=== PATIENT | female | born 1960 | race Caucasian/White ===

== ENCOUNTER → 2020-08-30 | Outpatient (CLI) | payer OTHER ==
--- NOTE | 2020-08-31 09:14 | RAD ---
EXAM: XR EXAM OF ANKLE_LEFT 2V, XR BILATERAL HIP (WITH OR WITHOUT PELVIS) LEFT 2 VIEWS 08/30/2020 11:0 9 AM CLINICAL INDICATION: Left hip and left ankle COMPARISON: None TECHNIQUE: 2 views of the left ankle. 2 views of the left hip. FINDINGS: Left ankle: No acute fracture. Alignment is normal. Ankle mortise is symmetric and talar dome is inta ct. Plantar calcaneal enthesophyte. There is mild circumferential soft tissue swelling. Left hip: No acute fracture. Alignment is normal. Joint spaces are maintained. Pubic symphysis, sacro iliac joints and lower lumbar spine are unremarkable. IMPRESSION: 1. Mild soft tissue swelling of the left ankle without acute fracture. 2. Small plantar calcaneal enthesophyte. 3. Normal left hip. Electronically signed by: Ramonita Live MD (08/31/2020 9:12 AM) [id number]
== END ==
LOC: RAD 10:10
PROVIDERS: ATTEND Anesthesiology Pain Medicine
DX: M79.89 Other specified soft tissue disorders (principal); M25.572 Pain in left ankle and joints of left foot; M25.552 Pain in left hip
CPT/HCPCS: 73502; 73600